=== PATIENT | male | born 1995 | race Hispanic/Latino ===

== ENCOUNTER 2022-03-03 01:31 | Emergency (ER) | payer BC ==
[~2022-03-03] VITALS: Ht 180.3 cm; Wt 115.2 kg
[2022-03-03 02:41] LABS: APPEARANCE,URINE Clear (CLEAR); BILIRUBIN,URINE Negative (NEGATIVE); COLOR,URINE Yellow (YELLOW); GLUCOSE, URINE (UA) Negative (NEGATIVE); KETONES,URINE Negative (NEGATIVE); LEUKOCYTE ESTERASE ,URINE Negative (NEGATIVE); NITRATE,URINE Negative (NEGATIVE); OCCULT BLOOD,URINE Negative (NEGATIVE); PH,URINE 5.5 (5.0-8.0); PROTEIN,URINE Trace mg/dL (NEGATIVE); UROBILINOGEN,URINE 0.2 mg/dL (0.2-1.0)
[2022-03-03 02:50] LABS: BASOPHILS % (AUTO) 0.5 % (0.0-5.0); HEMATOCRIT 38.5 % (42-54); LYMPHOCYTES % (AUTO) 25.5 % (21.0-51.0); MEAN CORPUSCULAR HEMOGLOBIN 28.9 pg (27.0-33.0); MEAN CORPUSCULAR HGB CONC 33.2 g/dL (32.0-36.0); MEAN CORPUSCULAR VOLUME 86.9 fL (79-99); MONOCYTES % (AUTO) 10.5 % (3.0-13.0); NEUTROPHILS % (AUTO) 60.2 % (40.0-77.0); PLATELET COUNT (AUTO) 252 K/uL (130-400); RED BLOOD CELL COUNT(AUTO) 4.43 MIL/uL (4.50-6.20); RED CELL DISTRIBUTION WIDTH 13.6 % (11.0-15.5); WHITE BLOOD COUNT (AUTO) 11.6 K/uL (4.8-10.8)
[2022-03-03] MEDS ORDERED: METOCLOPRAMIDE 10 MG/2 ML VIAL IVP ONE (03:00)
[2022-03-03] MEDS ORDERED: ONDANSETRON 4MG INJ IVP ONE (03:00)
[2022-03-03] MEDS ORDERED: 0.9%NACL 1000ML 1,000 ML IV ONE (03:00)
[2022-03-03 03:08] LABS: CREATININE 0.9 mg/dL (0.5-1.5); POTASSIUM 3.8 mmol/L (3.5-5.1)
[2022-03-03 03:14] LABS: ALBUMIN 3.7 g/dL (3.5-5.0); BILIRUBIN,TOTAL 0.5 mg/dL (0.2-1.0); TOTAL PROTEIN, SERUM 6.8 g/dL (6.0-8.3)
[2022-03-03] MEDS ORDERED: IOHEXOL 350 MG/ML 100ML INFUS..BTL IV ONE (03:23)
[2022-03-03] MEDS ORDERED: MELO7.5T12 PO (05:17)
[2022-03-03] MEDS ORDERED: CYCL-309 PO (05:17)
[2022-03-03] MEDS ORDERED: ONDA4TAB10 PO (05:17)
[2022-03-03] MEDS ORDERED: METO-296 PO (05:17)
[2022-03-03 05:29] VITALS: BP 139/73
== END 2022-03-03 05:29 | disposition home or self-care (01) ==
LOC: EDH 01:31
DX: R10.31 Right lower quadrant pain (principal); E86.9 Volume depletion, unspecified; L90.5 Scar conditions and fibrosis of skin; Z79.899 Other long term (current) drug therapy; Z85.47 Personal history of malignant neoplasm of testis; Z98.890 Other specified postprocedural states
CPT/HCPCS: 36415; 74177; 80053; 81003; 83690; 85025; 96374; 96375; 99284; J2405; J2765; J7030; Q9967

== ENCOUNTER 2022-04-05 05:05 | Emergency (ER) | payer BC ==
[~2022-04-05] VITALS: Ht 180.3 cm; Wt 108.0 kg
[~2022-04-05 05:05] MED LIST: CYCL-309 PO; MELO7.5T12 PO; METO-296 PO; ONDA4TAB10 PO
[2022-04-05 05:11] VITALS: BP 136/86
[2022-04-05] MEDS ORDERED: FLUORESCEIN SODIUM 1 STRIP STRIP ONE (05:24)
[2022-04-05] MEDS ORDERED: TETRACAINE HCL 0.5% 4 ML OPHTH SOLN ONE (05:24)
[2022-04-05] MEDS ORDERED: TETRACAINE HCL 0.5% 4 ML OPHTH SOLN OP ONE (06:00)
[2022-04-05] MEDS ORDERED: FLUORESCEIN SODIUM 1 STRIP STRIP OP SCH (06:00)
[2022-04-05] MEDS ORDERED: MORPHINE 4 MG SYG IM ONE (06:00)
[2022-04-05] MEDS ORDERED: ERYTHROMYCIN BASE 0.5% OPHTH OINT 1 GM TUBE ONE (06:56)
== END 2022-04-05 07:32 | disposition home or self-care (01) ==
LOC: EDH 05:05
DX: H57.11 Ocular pain, right eye (principal); H18.70 Unspecified corneal deformity; Z85.47 Personal history of malignant neoplasm of testis; Z79.899 Other long term (current) drug therapy; Z98.890 Other specified postprocedural states
CPT/HCPCS: 96372; 99284; J2270

== ENCOUNTER 2022-04-25 08:58 | Emergency (ER) | payer BC ==
[~2022-04-25] VITALS: Ht 177.8 cm; Wt 115.7 kg
[2022-04-25 09:29] LABS: HEMATOCRIT 37.7 % (42-54); MEAN CORPUSCULAR HEMOGLOBIN 28.3 pg (27.0-33.0); MEAN CORPUSCULAR HGB CONC 33.2 g/dL (32.0-36.0); MEAN CORPUSCULAR VOLUME 85.5 fL (79-99); PLATELET COUNT (AUTO) 170 K/uL (130-400); RED BLOOD CELL COUNT(AUTO) 4.41 MIL/uL (4.50-6.20); RED CELL DISTRIBUTION WIDTH 14.2 % (11.0-15.5); WHITE BLOOD COUNT (AUTO) 8.5 K/uL (4.8-10.8)
[2022-04-25 09:30] LABS: BASOPHILS % (AUTO) 0.4 % (0.0-5.0); LYMPHOCYTES % (AUTO) 10.1 % (21.0-51.0); MONOCYTES % (AUTO) 7.4 % (3.0-13.0); NEUTROPHILS % (AUTO) 81.7 % (40.0-77.0)
[2022-04-25] MEDS ORDERED: ACETAMINOPHEN 500 MG TABLET PO ONE (09:30)
[2022-04-25 09:39] LABS: CREATININE 1.2 mg/dL (0.5-1.5)
[2022-04-25 09:44] LABS: ALBUMIN 3.5 g/dL (3.5-5.0); BILIRUBIN,TOTAL 0.9 mg/dL (0.2-1.0); TOTAL PROTEIN, SERUM 7.3 g/dL (6.0-8.3)
[2022-04-25 09:54] LABS: APPEARANCE,URINE Clear (CLEAR); BILIRUBIN,URINE Negative (NEGATIVE); COLOR,URINE Yellow (YELLOW); GLUCOSE, URINE (UA) Negative (NEGATIVE); KETONES,URINE Negative (NEGATIVE); LEUKOCYTE ESTERASE ,URINE Negative (NEGATIVE); NITRATE,URINE Negative (NEGATIVE); OCCULT BLOOD,URINE Trace (NEGATIVE); PROTEIN,URINE Negative (NEGATIVE); UROBILINOGEN,URINE 0.2 mg/dL (0.2-1.0)
[2022-04-25 10:07] LABS: BACTERIA,URINE None Seen /HPF (None Seen); RBC,URINE None Seen /HPF (0-1); WBC,URINE None Seen /HPF (0-1)
[2022-04-25] MEDS ORDERED: 0.9%NACL 1000ML 1,000 ML IV ONE (11:00)
[2022-04-25] MEDS ORDERED: DOXYCYCLINE 100MG+NS 250ML IV ONE (11:00)
[2022-04-25] MEDS ORDERED: KETOROLAC 30MG VIAL (30MG/ML) IVP ONE (11:00)
[2022-04-25 11:25] VITALS: BP 117/74
[2022-04-25] MEDS ORDERED: DOXY-336 PO (13:33)
[2022-04-25] MEDS ORDERED: ONDA4TAB10 PO (13:33)
[2022-04-25] MEDS ORDERED: IBUP-2070 PO (13:33)
== END 2022-04-25 15:00 | disposition home or self-care (01) ==
LOC: EDH 08:58
DX: R50.9 Fever, unspecified (principal); Z20.822 Contact with and (suspected) exposure to COVID-19; Z85.47 Personal history of malignant neoplasm of testis; Z79.899 Other long term (current) drug therapy; Z98.890 Other specified postprocedural states
CPT/HCPCS: 36415; 71045; 80053; 81001; 83605; 85025; 87635; 87804 ×2; 96361; 96374; 96375; 99284; C9803; J1885; J3490; J7030 ×2